=== PATIENT | female | born 2000 | race Caucasian/White ===

== ENCOUNTER 2023-09-11 01:24 | Emergency (ER) | payer SELFPAY ==
[~2023-09-11] VITALS: Ht 170.2 cm; Wt 63.6 kg
[2023-09-11 01:40] VITALS: TEMP 98.4
[2023-09-11] MEDS ORDERED: droPERidol 2.5 MG/ML 2 ML VIAL IV ONE (02:30)
[2023-09-11] MEDS ORDERED: NS 1,000 ML IV ONE (02:30)
[2023-09-11 02:53] LABS: ALBUMIN 4.5 g/dL (3.5-5.0); BILIRUBIN,TOTAL 0.3 mg/dL (0.2-1.2); C-REACTIVE PROTEIN 0.07 mg/dL (0.00-0.50); CALCIUM 9.3 mg/dL (8.4-10.2); CREATININE, serum 0.8 mg/dL (0.57-1.11); TOTAL PROTEIN 7.2 g/dl (6.2-8.1)
[2023-09-11 02:54] LABS: POTASSIUM 2.7 mEq/L (3.5-4.5)
[2023-09-11 02:55] LABS: BASO % 0.3 % (0.0-2.0); EOS % 0.3 % (0.0-4.0); GRAN # 9.8 K/mm3 (1.4-6.5); GRAN % 75.5 % (42.2-75.2); HEMATOCRIT 42.9 % (37.0-47.0); HEMOGLOBIN 14.5 g/dl (12.5-16.0); LYMPH # 2.6 K/mm3 (1.2-3.4); MEAN CELL VOLUME 92 fl (80.0-100.0); MEAN CORPUSCULAR HEMOGLOBIN 31 pg (27-31); MEAN CORPUSCULAR HGB CONC 34 g/dl (33.0-37.0); MEAN PLATELET VOLUME 9.8 fl (7.4-10.4); MONO # 0.5 K/mm3 (0.1-0.6); MONO % 3.5 % (1.7-9.3); PLATELET COUNT 288 K/mm3 (130-400); RED BLOOD COUNT 4.69 M/mm3 (4.10-5.30); REDCELL DISTRIBUTION WIDTH-CV 12.3 % (11.5-14.5)
[2023-09-11] MEDS ORDERED: Morphine 4 MG/ML VIAL IV ONE (03:00)
[2023-09-11] MEDS ORDERED: Potassium Chloride 100 ML IV ONE (03:00)
[2023-09-11] MEDS ORDERED: Magnesium Sulfate 4% 50 ML IV ONE (03:00)
[2023-09-11] MEDS ORDERED: NS 250 ML IV ONE (03:00)
[2023-09-11] MEDS ORDERED: K-DUR20 MEQ PO (05:15)
[2023-09-11 05:26] VITALS: BP 125/86; PULSE 101
== END 2023-09-11 05:26 | disposition home or self-care (01) ==
LOC: COL.ER 01:24
PROVIDERS: Emergency Medicine
DX: R11.2 Nausea with vomiting, unspecified (principal); R10.10 Upper abdominal pain, unspecified; E87.6 Hypokalemia; R73.9 Hyperglycemia, unspecified
CPT/HCPCS: J1790; J2270; J3475; J3480; J7030; J7050